=== PATIENT | female | born 1980 | race African-American/Black ===

== ENCOUNTER 2017-12-05 22:10 | Emergency (ER) | payer OTHER, BC ==
[2017-12-05] MEDS: HYDROmorphONE 1 MG/ML SYG IV ×3 (22:21→23:18)
[2017-12-05] MEDS: ONDANSETRON 4 MG INJ IV ×3 (22:21→23:18)
[2017-12-05] MEDS ORDERED: PROPOFOL 20 ML (22:30)
[2017-12-05] MEDS: PROPOFOL 200 MG INJ IV (22:43)
[2017-12-06] MEDS: NICARDipine HCL 30 MG CAPSULE PO (00:56)
== END 2017-12-06 01:30 | disposition home or self-care (01) ==
LOC: E/R 12-06 01:30
DX: S82.441A Displaced spiral fracture of shaft of right fibula, initial encounter for closed fracture (principal); S82.51XA Displaced fracture of medial malleolus of right tibia, initial encounter for closed fracture; W10.8XXA Fall (on) (from) other stairs and steps, initial encounter; Y92.9 Unspecified place or not applicable
CPT/HCPCS: 27840; 73610-RT; 96374; 96375; 96376; 99285-25